=== PATIENT | female | born 1990 ===

== ENCOUNTER 2018-09-19 18:33 | Observation (INO) | payer SELFPAY ==
[2018-09-19] MEDS ORDERED: Iodixanol 320 MG/ML 100 ML BOTTLE IV ONE (19:11)
[2018-09-19 19:13] LABS: BASO % 0.4 % (0.0-2.0); EOS % 0.3 % (0.0-4.0); HEMOGLOBIN 11.7 g/dL (11.0-16.0); LYMPH # 1.2 K/uL (1.0-4.3); LYMPH % 22.1 % (20.0-40.0); MEAN CELL VOLUME 89.8 fL (81.0-99.0); MEAN CORPUSCULAR HEMOGLOBIN 28.8 pg (27.0-31.0); MEAN CORPUSCULAR HGB CONC 32.1 g/dL (33.0-37.0); MEAN PLATELET VOLUME 7.3 fL (7.2-11.7); MONO # 0.4 K/uL (0.0-0.8); MONO % 7.4 % (0.0-10.0); NEUT # 3.8 K/uL (1.8-7.0); NEUT % 69.8 % (50.0-75.0); NRBC % 0.1 % (0.0-2.0); RBC 4.08 Mil/uL (3.80-5.20); RED CELL DISTRIBUTION WIDTH 14.3 % (11.5-14.5); WHITE BLOOD COUNT 5.5 K/uL (4.8-10.8)
--- NOTE | 2018-09-19 19:21 | C.PDOC ---
History Of Present Illness CODE STROKE ACTIVATED BY Hx limited due to clinical condition, Hx per EMS, patient, and friends. 28 year old female with new onset slurred speech and left sided weakness. As per friends, at approximately 1700 patient was having an argument with someone then had sudden onset left sided weakness and difficulty speaking. Patient was able to walk done the stairs of her apartment to the EMS wheel chair. Symptoms are unchanged from onset. Patient has a Hx of lupus. Denies truama. Time Seen by Provider: 09/19/18 19:09 Chief Complaint (Nursing): Weakness/Neurological Deficit History Per: Patient, EMS, Other (Friends) History/Exam Limitations: clinical condition Onset/Duration Of Symptoms: Hrs, Sudden Onset Current Symptoms Are (Timing): Still Present Recent travel outside of the [place]: No Past Medical History Reviewed: Historical Data, Nursing Documentation, Vital Signs Vital Signs: Last Vital Signs Temp 98.4 F 09/19/18 18:40 Pulse 96 H 09/19/18 18:40 Resp 18 09/19/18 18:40 BP 150/100 H 09/19/18 18:40 Pulse Ox 98 09/19/18 18:40 Family History: States: Unknown Family Hx - Social History Hx Alcohol Use: No Hx Substance Use: No - Immunization History Hx Tetanus Toxoid Vaccination: No Hx Influenza Vaccination: No Hx Pneumococcal Vaccination: No Review Of Systems Except As Marked, All Systems Reviewed And Found Negative. Constitutional: Negative for: Fever, Chills Eyes: Negative for: Vision Change Cardiovascular: Negative for: Chest Pain, Palpitations Respiratory: Negative for: Cough, Shortness of Breath Neurological: Positive for: Weakness (Left sided), Change in Speech (Slurred) Physical Exam - Physical Exam Appears: Non-toxic Skin: Normal Color, Warm, Dry Head: Atraumatic, Normacephalic Eye(s): bilateral: Normal Inspection, PERRL, EOMI Oral Mucosa: Moist Neck: Normal, No Midline Cervical Tenderness, No Paracervical Tenderness, Supple Chest: Symmetrical, No Tenderness Cardiovascular: Rhythm Regular Respiratory: Normal Breath Sounds, No Rales, No Rhonchi, No Wheezing Gastrointestinal/Abdominal: Soft, No Tenderness Back: No CVA Tenderness, No Vertebral Tenderness, No Paraspinal Tenderness Extremity: Normal ROM (x4) Neurological/Psych: Other (See NIH) Gait: Steady ED Course And Treatment - Laboratory Results Result Diagrams: 09/19/18 19:10 09/19/18 19:10 ECG: Interpreted By Me ECG Rhythm: Sinus Rhythm ECG Interpretation: Normal Rate From EC O2 Sat by Pulse Oximetry: 98 Pulse Ox Interpretation: Normal NIHSS Stroke Scale - Date/Time Evaluation Performed Date Performed: 09/19/18 Time Performed: 19:19 When Was NIHSS Performed: Code Stroke - How Severe is the Stroke Level of Consciousness: 0=Alert LOC to Questions: 0=Both comments correct LOC to commands: 0=Obeys both correctly Best Gaze: 0=Normal Visual: 0=No visual loss Facial: 0=Normal Motor Arm - Left: 3=No effort against gravity (falls immediately) Motor Arm - Right: 3=No effort against gravity (falls immediately) Motor Leg - Left: 3=No effort against gravity (falls immediately) Motor Leg - Right: 3=No effort against gravity (falls immediately) Limb Ataxia: 0=Absent Sensory: 0=Normal Best Language: 0=No aphasia Dysarthia: 1=Mild to moderate slurring Extinction & Inattention (Neglect): 0=Normal, no object Score: 13 Progress - Re-Evaluation Re-evaluation Note: 09/19/18 19:24 D/W DR AMOS AWARE OF ER FINDINGS. PT NOT A CANDIDATE FOR TPA. WILL CONSULT, MRI BRAIN. 09/19/18 20:29 D/W DR BLOOD WILL ADMIT. REQUESTS UDS - Data Reviewed Data Reviewed: Lab, Diagnostic imaging, EKG, Old records - Critical Care Citical Care: Excluding Proc Time Critical Care Time: 90 minutes rTPA Inclusion/Exclusion - Refusal of Treatment Patient Refused Treatment: No - Inclusion Criteria for Altepase Patient is 18 years or Older: Yes The Clinical Diagnosis of Ischemic Stroke That is Causing a Potentially Disabling Neurological Deficit: Yes Time of Onset is Well Established to be Less Than 270 Minute Before Treatment Would Begin: Yes Risk/Benefit Discussed With Patient/Family Member Present: Yes - Exclusion Criteria for Altepase Uncontrolled Hypertension at Time of Treatment (Systolic BP above 185 or Diastolic BP above 110 mmHg): No Active Internal Bleeding: No Known Bleeding Diathesis Including but Not Limited to: Platelets Below 100,000 /mm,PTT Above 40 sec After Heparin Use, Current Use of Oral Anitcoagulant With INR Greater Than 1.7 or PT Greater Than 15 secs: No Evidence of an Intracranial Hemorrhage: No Evidence of Major Acute Infarct With Signs Greater Than 1/3 MCA Territory: No Suspicion of Subarachnoid Hemorrhage on Pretreatment Evaluation Even if CT Head Negative For Hemorrhage: No - Warning to TPA With Conditions Following Conditions Weighed Against Anticipated Benefit: No Medical Decision Making Medical Decision Making: Plan: * CT head * CTA * EKG * CXR * Blood work * Aspirin * Tylenol 1923: Case discussed with Dr. Amos Disposition Counseled Patient/Family Regarding: Studies Performed, Diagnosis - Disposition Disposition: HOSPITALIZED Disposition Time: 20:30 Condition: STABLE - POA Present On Arrival: None - Clinical Impression Clinical Impression: TIA (transient ischemic attack) - Scribe Statement The provider has reviewed the documentation as recorded by the Scribe Darrel Harkins All medical record entries made by the Scribe were at my direction and personally dictated by me. I have reviewed the chart and agree that the record accurately reflects my personal performance of the history, physical exam, medical decision making, and the department course for this patient. I have also personally directed, reviewed, and agree with the discharge instructions and disposition.
[2018-09-19 19:28] LABS: ALB/GLOB RATIO 1.3 (1.0-2.1); ALBUMIN 3.6 g/dL (3.5-5.0); ALT/SGPT 15 U/L (9-52); AST/SGOT 20 U/L (14-36); BLOOD UREA NITROGEN 15 mg/dL (7-17); CALCIUM 8.4 mg/dl (8.6-10.4); GFR NON-AFRICAN AMERICAN > 60; HDL CHOLESTEROL 77 mg/dL (30-70)
[2018-09-19 19:39] LABS: LDL CHOLESTEROL 58 mg/dL (0-129)
[2018-09-19 21:04] LABS: BARBITURATES, UR NEGATIVE (NEGATIVE); BENZODIAZEPINES, UR NEGATIVE (NEGATIVE); OPIATES, UR NEGATIVE (NEGATIVE); PHENCYCLIDINE, UR NEGATIVE (NEGATIVE)
--- NOTE | 2018-09-20 03:28 | CP.PCM.HP ---
<Vladislav Mariano - Last Filed: 09/20/18 07:30> History of Present Illness - History of Present Illness History of Present Illness: H&P note for Dr Womack cc: Passing out, left side weakness HPI: Patient is a 28 year old Female with pmhx of Lupus, nephrotic syndrome, Stage V kidney failure, and anemia that presents to ED after passing out after an argument with her roomate. Patient states she was having ajob interview when her male roomate came and screamed at her for using a cutting board. Patient got nervous, hot and dizzy during the argument and states she lost consciousness and hit her head. Patient does not know how long she was unsconscious and only remembers seeing EMT staff at her room after passing out. Patient decided not be taken to the hospital, but shortly developed slurred speech, weakness on left upper and lower extremity and difficulty walking. Kenyon mckenna admits to headache for about 13 days and has taken tylenol which helps for a short time. Patient admits to chest tightness and shortness of breath, but denies palpitations, nausea, vomiting, changes in vision, diarrhea, constipation, urinary symptoms, or leg swelling. PMD: [place] All: Flu shot (face breakout, flare), Pesticides (flare) Pmhx: as mentioned in HPI Shx: Kidney biopsy (1 month ago), lymph node removal in abdomen ( 1 1/2 year ago) Fmhx: none Sochx: denies alcohol, tobacco or illicit drug use. Present on Admission - Present on Admission Any Indicators Present on Admission: No Review of Systems - Review of Systems All systems: reviewed and no additional remarkable complaints except Review of Systems: as mentioned in HPI Past Patient History - Past Social History Smoking Status: Never Smoked - ENDOCRINE/METABOLIC Hx Endocrine Disorders: Yes Hx Systemic Lupus Erythematosus: Yes - PSYCHIATRIC Hx Substance Use: No Meds Allergies/Adverse Reactions: Allergies Allergy/AdvReac Type Severity Reaction Status Date / Time influenza virus vaccine ts AdvReac Severe rasd Verified 09/20/18 05:36 [id number] (36 mos up) [From Fluarix [id number] (PF)] Physical Exam - Constitutional Appears: Non-toxic, No Acute Distress - Head Exam Head Exam: ATRAUMATIC, NORMAL INSPECTION, NORMOCEPHALIC - Eye Exam Eye Exam: EOMI, Normal appearance Pupil Exam: Mydriatic, NORMAL ACCOMODATION - ENT Exam ENT Exam: Mucous Membranes Moist, Normal Exam - Neck Exam Neck exam: Positive for: Normal Inspection. Negative for: Lymphadenopathy, Tenderness - Respiratory Exam Respiratory Exam: Clear to Auscultation Bilateral, NORMAL BREATHING PATTERN. absent: Rales, Rhonchi, Wheezes, Respiratory Distress - Cardiovascular Exam Cardiovascular Exam: REGULAR RHYTHM, +S1, +S2 - GI/Abdominal Exam GI & Abdominal Exam: Normal Bowel Sounds, Soft. absent: Distended, Guarding, Rebound - Extremities Exam Extremities exam: Positive for: normal inspection, pedal pulses present. Negative for: calf tenderness, pedal edema, tenderness - Back Exam Back exam: NORMAL INSPECTION. absent: paraspinal tenderness, tenderness - Neurological Exam Neurological exam: Alert, CN II-XII Intact, Oriented x3 Additional comments: slurred speech - Expanded Neurological Exam Expanded Speech: Slurred Speech Cranial nerves: EOM's Intact: Normal, Facial [place] w/Forehead Movement: Normal, Facial [place] w/o Forehead Movement: Normal, Facial Sensation: Normal Cerebellar Function: Finger to Nose: Normal Sensory exam: Lower Extremity Light Touch: Normal, Upper Extremity Light Touch: Normal Neuro motor strength exam: Left Upper Extremity: 3, Right Upper Extremity: 5, Left Lower Extremity: 3, Right Lower Extremity: 5 - Psychiatric Exam Psychiatric exam: Normal Affect, Normal Mood - Skin Skin Exam: Dry, Intact, Normal Color, Warm Results - Vital Signs Recent Vital Signs: Last Vital Signs Temp 98.2 F 09/20/18 01:10 Pulse 79 09/20/18 02:55 Resp 18 09/20/18 02:55 BP 117/84 09/20/18 02:55 Pulse Ox 98 09/20/18 02:55 - Labs Result Diagrams: 09/19/18 19:10 09/19/18 19:10 Labs: Laboratory Results - last 24 hr 09/19/18 09/19/18 09/19/18 19:10 19:10 19:10 WBC 5.5 RBC 4.08 Hgb 11.7 Hct 36.7 MCV 89.8 MCH 28.8 MCHC 32.1 L RDW 14.3 Plt Count 320 MPV 7.3 Neut % (Auto) 69.8 Lymph % (Auto) 22.1 [place] % (Auto) 7.4 Eos % (Auto) 0.3 Baso % (Auto) 0.4 Neut # (Auto) 3.8 Lymph # (Auto) 1.2 [place] # (Auto) 0.4 Eos # (Auto) 0.0 Baso # (Auto) 0.0 PT 11.0 INR 1.0 APTT 28 Sodium 136 Potassium 3.3 L Chloride 99 Carbon Dioxide 28 Anion Gap 12 BUN 15 Creatinine 0.5 L Est GFR ( Amer) > 60 Est GFR (Non-Af Amer) > 60 Random Glucose 108 H Hemoglobin A1c Calcium 8.4 L Total Bilirubin 0.2 AST 20 ALT 15 Alkaline Phosphatase 36 L Troponin I < 0.0120 Total Protein 6.4 Albumin 3.6 Globulin 2.8 Albumin/Globulin Ratio 1.3 Triglycerides 132 Cholesterol 149 LDL Cholesterol Direct 58 HDL Cholesterol 77 H Beta HCG, Quant Urine Opiates Screen Urine Methadone Screen Ur Barbiturates Screen Ur Phencyclidine Scrn Ur Amphetamines Screen U Benzodiazepines Scrn U Oth Cocaine Metabols U Cannabinoids Screen Blood Type Antibody Screen 09/19/18 09/19/18 09/19/18 19:10 19:10 19:31 WBC RBC Hgb Hct MCV MCH MCHC RDW Plt Count MPV Neut % (Auto) Lymph % (Auto) [place] % (Auto) Eos % (Auto) Baso % (Auto) Neut # (Auto) Lymph # (Auto) [place] # (Auto) Eos # (Auto) Baso # (Auto) PT INR APTT Sodium Potassium Chloride Carbon Dioxide Anion Gap BUN Creatinine Est GFR ( Amer) Est GFR (Non-Af Amer) Random Glucose Hemoglobin A1c 5.4 Calcium Total Bilirubin AST ALT Alkaline Phosphatase Troponin I Total Protein Albumin Globulin Albumin/Globulin Ratio Triglycerides Cholesterol LDL Cholesterol Direct HDL Cholesterol Beta HCG, Quant < 2.39 Urine Opiates Screen Urine Methadone Screen Ur Barbiturates Screen Ur Phencyclidine Scrn Ur Amphetamines Screen U Benzodiazepines Scrn U Oth Cocaine Metabols U Cannabinoids Screen Blood Type A POSITIVE Antibody Screen Negative 09/19/18 09/20/18 20:36 00:24 WBC RBC Hgb Hct MCV MCH MCHC RDW Plt Count MPV Neut % (Auto) Lymph % (Auto) [place] % (Auto) Eos % (Auto) Baso % (Auto) Neut # (Auto) Lymph # (Auto) [place] # (Auto) Eos # (Auto) Baso # (Auto) PT INR APTT Sodium Potassium Chloride Carbon Dioxide Anion Gap BUN Creatinine Est GFR ( Amer) Est GFR (Non-Af Amer) Random Glucose Hemoglobin A1c Calcium Total Bilirubin AST ALT Alkaline Phosphatase Troponin I < 0.0120 Total Protein Albumin Globulin Albumin/Globulin Ratio Triglycerides Cholesterol LDL Cholesterol Direct HDL Cholesterol Beta HCG, Quant Urine Opiates Screen Negative Urine Methadone Screen Negative Ur Barbiturates Screen Negative Ur Phencyclidine Scrn Negative Ur Amphetamines Screen Negative U Benzodiazepines Scrn Negative U Oth Cocaine Metabols Negative U Cannabinoids Screen Negative Blood Type Antibody Screen Assessment & Plan - Assessment and Plan (Free Text) Plan: Left side weakness, slurred speech R/O TIA vs CVA - Code stroke at ER - CT head: Sinusitis, no evidence of acute intracranial pathology - CTA: unremarkable - Troponin and EKG x1 in ED: negative - MRI brain - in am - f/u - Neuro consult - Dr Amos - help is appreciated - troponin x 2 - f/u - EKG x 2 - f/u - 2D echo - Carotid doppler - Aspirin 81mg PO QD - Crestor 5mg PO HS - Tylenol [place] x 1 dose for headaches - Toradol 15mg IVP x 1 dose - f/u am labs Hypokalemia - 3.3 - F/u am labs, correct if needed hx of Lupus -obtain home med list from patient's pharmacy Prophylaxis -DVT - SCDs - Diet: Renal diet - Fall precautions - PT/OT - NS @ 75mls Plan discussed with Dr Shanta Mariano, PGY-1 - Date & Time Date: 09/19/18 Time: 20:00 <Christian Womack - Last Filed: 09/20/18 19:02> Results - Vital Signs Recent Vital Signs: Last Vital Signs Temp 97.3 F L 09/20/18 15:00 Pulse 78 09/20/18 16:00 Resp 20 09/20/18 15:00 BP 111/72 09/20/18 15:00 Pulse Ox 92 L 09/20/18 16:00 - Labs Result Diagrams: 09/19/18 19:10 09/19/18 19:10 Labs: Laboratory Results - last 24 hr 09/19/18 09/19/18 09/19/18 18:42 19:10 19:10 WBC 5.5 RBC 4.08 Hgb 11.7 Hct 36.7 MCV 89.8 MCH 28.8 MCHC 32.1 L RDW 14.3 Plt Count 320 MPV 7.3 Neut % (Auto) 69.8 Lymph % (Auto) 22.1 [place] % (Auto) 7.4 Eos % (Auto) 0.3 Baso % (Auto) 0.4 Neut # (Auto) 3.8 Lymph # (Auto) 1.2 [place] # (Auto) 0.4 Eos # (Auto) 0.0 Baso # (Auto) 0.0 PT 11.0 INR 1.0 APTT 28 Sodium Potassium Chloride Carbon Dioxide Anion Gap BUN Creatinine Est GFR ( Amer) Est GFR (Non-Af Amer) POC Glucose (mg/dL) 117 H Random Glucose Hemoglobin A1c Calcium Total Bilirubin AST ALT Alkaline Phosphatase Troponin I Total Protein Albumin Globulin Albumin/Globulin Ratio Triglycerides Cholesterol LDL Cholesterol Direct HDL Cholesterol Beta HCG, Quant Urine Opiates Screen Urine Methadone Screen Ur Barbiturates Screen Ur Phencyclidine Scrn Ur Amphetamines Screen U Benzodiazepines Scrn U Oth Cocaine Metabols U Cannabinoids Screen Blood Type Antibody Screen 09/19/18 09/19/18 09/19/18 19:10 19:10 19:10 WBC RBC Hgb Hct MCV MCH MCHC RDW Plt Count MPV Neut % (Auto) Lymph % (Auto) [place] % (Auto) Eos % (Auto) Baso % (Auto) Neut # (Auto) Lymph # (Auto) [place] # (Auto) Eos # (Auto) Baso # (Auto) PT INR APTT Sodium 136 Potassium 3.3 L Chloride 99 Carbon Dioxide 28 Anion Gap 12 BUN 15 Creatinine 0.5 L Est GFR ( Amer) > 60 Est GFR (Non-Af Amer) > 60 POC Glucose (mg/dL) Random Glucose 108 H Hemoglobin A1c 5.4 Calcium 8.4 L Total Bilirubin 0.2 AST 20 ALT 15 Alkaline Phosphatase 36 L Troponin I < 0.0120 Total Protein 6.4 Albumin 3.6 Globulin 2.8 Albumin/Globulin Ratio 1.3 Triglycerides 132 Cholesterol 149 LDL Cholesterol Direct 58 HDL Cholesterol 77 H Beta HCG, Quant Urine Opiates Screen Urine Methadone Screen Ur Barbiturates Screen Ur Phencyclidine Scrn Ur Amphetamines Screen U Benzodiazepines Scrn U Oth Cocaine Metabols U Cannabinoids Screen Blood Type A POSITIVE Antibody Screen Negative 09/19/18 09/19/1818 19:31 20:36 00:24 WBC RBC Hgb Hct MCV MCH MCHC RDW Plt Count MPV Neut % (Auto) Lymph % (Auto) [place] % (Auto) Eos % (Auto) Baso % (Auto) Neut # (Auto) Lymph # (Auto) [place] # (Auto) Eos # (Auto) Baso # (Auto) PT INR APTT Sodium Potassium Chloride Carbon Dioxide Anion Gap BUN Creatinine Est GFR ( Amer) Est GFR (Non-Af Amer) POC Glucose (mg/dL) Random Glucose Hemoglobin A1c Calcium Total Bilirubin AST ALT Alkaline Phosphatase Troponin I < 0.0120 Total Protein Albumin Globulin Albumin/Globulin Ratio Triglycerides Cholesterol LDL Cholesterol Direct HDL Cholesterol Beta HCG, Quant < 2.39 Urine Opiates Screen Negative Urine Methadone Screen Negative Ur Barbiturates Screen Negative Ur Phencyclidine Scrn Negative Ur Amphetamines Screen Negative U Benzodiazepines Scrn Negative U Oth Cocaine Metabols Negative U Cannabinoids Screen Negative Blood Type Antibody Screen 09/20/18 09/20/18 09/20/18 06:35 06:41 17:07 WBC RBC Hgb Hct MCV MCH MCHC RDW Plt Count MPV Neut % (Auto) Lymph % (Auto) [place] % (Auto) Eos % (Auto) Baso % (Auto) Neut # (Auto) Lymph # (Auto) [place] # (Auto) Eos # (Auto) Baso # (Auto) PT INR APTT Sodium Potassium Chloride Carbon Dioxide Anion Gap BUN Creatinine Est GFR ( Amer) Est GFR (Non-Af Amer) POC Glucose (mg/dL) 72 81 Random Glucose Hemoglobin A1c Calcium Total Bilirubin AST ALT Alkaline Phosphatase Troponin I < 0.0120 Total Protein Albumin Globulin Albumin/Globulin Ratio Triglycerides Cholesterol LDL Cholesterol Direct HDL Cholesterol Beta HCG, Quant Urine Opiates Screen Urine Methadone Screen Ur Barbiturates Screen Ur Phencyclidine Scrn Ur Amphetamines Screen U Benzodiazepines Scrn U Oth Cocaine Metabols U Cannabinoids Screen Blood Type Antibody Screen Assessment & Plan - Date & Time Date: 09/20/18 (I have seen and examined the patient. I agree with the findings and plan of care as documented by Dr. Mariano. Patient with CVA/TIA. Code stroke called in ED. Neuro consulted. CT head negative. Check MRI brain. ROMIx3 with ekg. 2D Echo. Carotid dopplers. Hypokalemia. Follow bloodwork and replete as necessary. History of Lupus. Contact patient's pharmacy and obtain up to date med list. Monitor for acute changes.) Time: 19:00 Attending/Attestation - Attestation I have personally seen and examined this patient.: Yes I have fully participated in the care of the patient.: Yes I have reviewed all pertinent clinical information: Yes
[2018-09-20 03:40] VITALS: RESP 20
[2018-09-20] MEDS ORDERED: Sodium Chloride 0.9% 1,000 ML IV SCH (05:15)
--- NOTE | 2018-09-20 08:21 | CT ---
Date of service: 09/19/2018 PROCEDURE: CT HEAD WITHOUT CONTRAST. HISTORY: Code Stroke COMPARISON: None available. TECHNIQUE: Axial computed tomography images were obtained through the head/brain without intravenous contrast. Radiation dose: Total exam DLP = 1105.42 mGy-cm. This CT exam was performed using one or more of the following dose reduction techniques: Automated exposure control, adjustment of the mA and/or kV according to patient size, and/or use of iterative reconstruction technique. FINDINGS: HEMORRHAGE: No intracranial hemorrhage. BRAIN: No mass effect or edema. No atrophy or chronic microvascular ischemic changes. Punctate calcification in the right basal ganglia. VENTRICLES: Unremarkable. No hydrocephalus. CALVARIUM: Unremarkable. PARANASAL SINUSES: Mild mucosal thickening of the frontal sinus. MASTOID AIR CELLS: Unremarkable as visualized. No inflammatory changes. OTHER FINDINGS: None. IMPRESSION: No acute intracranial abnormality. If there is persistent concern for acute ischemic change, consider correlation with MRI. A preliminary report was generated at 7:05 p.m. on 09/19/[address] Juan Manuel Ceballos from [facility].
[2018-09-20] MEDS ORDERED: Potassium Chloride 20 mEq/15 ml LIQ UD PO STA (10:03)
--- NOTE | 2018-09-20 10:28 | RAD ---
HISTORY: Code Stroke COMPARISON: No prior. TECHNIQUE: Chest, one view. FINDINGS: LUNGS: No focal consolidation. Please note that chest x-ray has limited sensitivity for the detection of pulmonary masses. PLEURA: No significant pleural effusion identified. No definite pneumothorax . CARDIOVASCULAR: Heart size appears within normal limits. Right mediastinal prominence possibly related to tortuous vasculature however alternatives including adenopathy are not excluded. No significant atherosclerotic calcification present. OSSEOUS STRUCTURES: No acute osseous abnormality identified. VISUALIZED UPPER ABDOMEN: Unremarkable. OTHER FINDINGS: None. IMPRESSION: No focal consolidation identified. Right mediastinal prominence possibly related to tortuous vasculature however alternatives including adenopathy are not excluded. Recommend repeat chest PA and lateral, otherwise CT of the chest with IV contrast may be considered for further evaluation if indicated.
--- NOTE | 2018-09-20 12:25 | CT ---
Date of service: 09/19/2018 PROCEDURE: CT Angiography of the neck and brain with contrast HISTORY: CODE STROKE COMPARISON: Comparison made concurrent noncontrast CT scan brain 09/19/2018. TECHNIQUE: Contiguous axial images of the neck and brain were obtained from the level of the vertex of the skull to the superior mediastinum in the arteriographic phase of enhancement. Coronal and sagittal reformats or also generated. IV contrast dose: Radiation dose: Total exam DLP = 492.86 mGy-cm. This CT exam was performed using one or more of the following dose reduction techniques: Automated exposure control, adjustment of the mA and/or kV according to patient size, and/or use of iterative reconstruction technique. FINDINGS: Aortic arch widely patent as are the origins of the great vessels. No significant atherosclerotic calcification or mural plaque identified. RIGHT CAROTID ARTERIES: Common Carotid Artery: Normal. Carotid Bifurcation: Normal. Internal Carotid Artery:Diminutive in caliber felt to represent an anatomic variation l. External Carotid Artery (proximal branches): Normal.. LEFT CAROTID ARTERIES: Common Carotid Artery: Normal. Carotid Bifurcation: Normal. Internal Carotid Artery:Diminutive in caliber felt to represent an anatomic variation. External Carotid Artery (proximal branches): Normal. VERTEBRAL ARTERIES: Vertebral arteries are diminutive in caliber as is the basilar artery.. OTHER FINDINGS: The major branches of the [id number] are also diminutive in caliber on. There is mild asymmetry of the A2 segments right-sided which is smaller in caliber than the left.. The more distal branches of the anterior middle and posterior cerebral arteries appear relatively symmetric. No evidence of large aneurysm nor vascular malformation. IMPRESSION: No evidence of occlusion significant stenosis or dissection. No evidence of large intra cerebral aneurysm or vascular malformation.
--- NOTE | 2018-09-20 12:45 | MRI ---
Date of service: 09/20/2018 PROCEDURE: MRI BRAIN WITHOUT CONTRAST HISTORY: left side weakness COMPARISON: Comparison made with prior CT scan and CTA brain and neck dated 09/19/2018. TECHNIQUE: Multiplanar, multisequence MR images of the brain were obtained without intravenous contrast enhancement. FINDINGS: HEMORRHAGE: No acute parenchymal, subarachnoid or extra-axial hemorrhage. No evidence of venous in deposition identified on gradient echo on gradient echo weighted sequence. DWI: No evidence of an acute or early subacute infarction filling diffusion imaging.. BRAIN PARENCHYMA: No mass effect or edema. No atrophy or chronic microvascular ischemic changes. VENTRICLES: No obstructive hydrocephalus. CRANIUM: Unremarkable. ORBITS: Orbits and contents grossly unremarkable. PARANASAL SINUSES/MASTOIDS: Mild mucosal thickening and/or small fluid level right maxillary antrum. Minimal mucosal thickening left maxillary antrum. There is also mild mucosal thickening in the left aspect of the frontal sinus VASCULAR SYSTEM: Visualized major vascular flow voids at skull base patent.. OTHER FINDINGS: None. IMPRESSION: No evidence of acute intracranial hemorrhage or infarction. Mild mucoperiosteal inflammatory changes seen within the aforementioned paranasal sinuses
--- NOTE | 2018-09-20 13:52 | CARD ---
APPROVED REPORT Date of service: 09/20/2018 EXAM: Two-dimensional and M-mode echocardiogram with Doppler and color Doppler. Other Information Quality : GoodRhythm : INDICATION R/O CARDIAC PATHOLOGY,CODE STROKE 2D DIMENSIONS IVSd1.0 (0.7-1.1cm)Aortic Root (2D)2.5 (2.0-3.7cm) LVDd4.7 (3.9-5.9cm)PWd0.9 (0.7-1.1cm) LA Jmejfk15 (18-58mL)LVDs3.3 (2.5-4.0cm) FS (%) 29.7 %LVEF (%)56.7 (>50%) LVEF (Wray's)61.83 %IVC0.00 cm M-Mode DIMENSIONS RVDd1.72 (2.1-3.2cm)Left Atrium (MM)2.97 (2.5-4.0cm) IVSd1.15 (0.7-1.1cm)Aortic Root2.77 (2.2-3.7cm) LVDd4.14 (4.0-5.6cm)Aortic Cusp Exc.2.05 (1.5-2.0cm) PWd1.15 (0.7-1.1cm)FS (%) 34 % LVDs2.73 (2.0-3.8cm)LVEF (%)63 (>50%) Mitral Valve MV E Zqkbyapg15.8cm/sMV A Shylekaq35.1cm/sE/A ratio1.4 TDI Lateral E' Peak V13.77cm/sMedial E' Peak V5.84cm/sE/Lateral E'4.9 E/Medial E'11.6 Tricuspid Valve TR Peak Zkpiahiq465nd/sTR Peak Gr.35xpPtIACR96voFl LEFT VENTRICLE The left ventricle is normal size. There is normal left ventricular wall thickness. Left ventricle systolic function is The Ejection Fraction is 60-65%. There is normal LV segmental wall motion. The left ventricular diastolic function is normal. No left ventricle thrombus noted on this study. There is no ventricular septal defect visualized. RIGHT VENTRICLE The right ventricle is normal size. The right ventricular systolic function is normal. ATRIA The left atrium size is normal. The right atrium size is normal. The interatrial septum is intact with no evidence for an atrial septal defect. AORTIC VALVE The aortic valve is trileaflet. No aortic regurgitation is present. There is no aortic valvular stenosis. There is no aortic valvular vegetation. MITRAL VALVE Mitral annular calcification is mild. There is no evidence of mitral valve prolapse. There is no mitral valve stenosis. There is no mitral valve regurgitation noted. TRICUSPID VALVE The tricuspid valve is normal in structure. There is mild tricuspid regurgitation. Right ventricular systolic pressure is estimated at less than 30 mmHg. There is no pulmonary hypertension. There is no tricuspid valve prolapse or vegetation. There is no tricuspid valve stenosis. PULMONIC VALVE The pulmonary valve is normal in structure. There is trace to mild pulmonic valvular regurgitation. There is no pulmonic valvular stenosis. GREAT VESSELS The aortic root is normal in size. The IVC is normal in size and collapses >50% with inspiration. PERICARDIAL EFFUSION There is no pericardial effusion. There is no pleural effusion. <Conclusion> The left ventricle is normal size. Left ventricle systolic function is The Ejection Fraction is 60-65%. The left ventricular diastolic function is normal. The right ventricle is normal size. The right ventricular systolic function is normal. The left atrium size is normal. The right atrium size is normal. There is mild tricuspid regurgitation. There is trace to mild pulmonic valvular regurgitation.
[2018-09-20 16:15] VITALS: BP 111/72; TEMP 97.3; O2SAT 92
[2018-09-20 17:22] VITALS: PULSE 78
--- NOTE | 2018-09-20 21:58 | CP.PCM.DIS ---
Provider - Provider Date of Admission: 09/19/18 20:30 Attending physician: Chirag Olivarez MD Consults: 09/19/18 18:40 Stroke Team Consult Stat Comment: Consulting Provider: Neurohospitalist Consulting Physician: NEUROHOMATILDA Neurohospitalist for Consult: Dutch Marina Neurohospitalist for Consult: Mark Amos Reason for Consult: code stroke 09/20/18 00:12 Neurology Consult Routine Comment: Consulting Provider: Mark Amos Consulting Physician: Mark Amos Reason for Consult: Left side weakness, slurred speech, r/o TIA vs CVA Time Spent in preparation of Discharge (in minutes): 45 Diagnosis - Discharge Diagnosis (1) Stress and adjustment reaction Status: Resolved Hospital Course - Lab Results Lab Results: Most Recent Lab Values WBC 5.5 K/uL (4.8-10.8) 09/19/18 19:10 RBC 4.08 Mil/uL (3.80-5.20) 09/19/18 19:10 Hgb 11.7 g/dL (11.0-16.0) 09/19/18 19:10 Hct 36.7 % (34.0-47.0) 09/19/18 19:10 MCV 89.8 fL (81.0-99.0) 09/19/18 19:10 MCH 28.8 pg (27.0-31.0) 09/19/18 19:10 MCHC 32.1 g/dL (33.0-37.0) L 09/19/18 19:10 RDW 14.3 % (11.5-14.5) 09/19/18 19:10 Plt Count 320 K/uL (130-400) 09/19/18 19:10 MPV 7.3 fL (7.2-11.7) 09/19/18 19:10 Neut % (Auto) 69.8 % (50.0-75.0) 09/19/18 19:10 Lymph % (Auto) 22.1 % (20.0-40.0) 09/19/18 19:10 Long % (Auto) 7.4 % (0.0-10.0) 09/19/18 19:10 Eos % (Auto) 0.3 % (0.0-4.0) 09/19/18 19:10 Baso % (Auto) 0.4 % (0.0-2.0) 09/19/18 19:10 Neut # (Auto) 3.8 K/uL (1.8-7.0) 09/19/18 19:10 Lymph # (Auto) 1.2 K/uL (1.0-4.3) 09/19/18 19:10 Long # (Auto) 0.4 K/uL (0.0-0.8) 09/19/18 19:10 Eos # (Auto) 0.0 K/uL (0.0-0.7) 09/19/18 19:10 Baso # (Auto) 0.0 K/uL (0.0-0.2) 09/19/18 19:10 PT 11.0 SECONDS (9.7-12.2) 09/19/18 19:10 INR 1.0 09/19/18 19:10 APTT 28 SECONDS (21-34) 09/19/18 19:10 Sodium 136 mmol/L (132-148) 09/19/18 19:10 Potassium 3.3 mmol/L (3.6-5.2) L 09/19/18 19:10 Chloride 99 mmol/L (98-107) 09/19/18 19:10 Carbon Dioxide 28 mmol/L (22-30) 09/19/18 19:10 Anion Gap 12 (10-20) 09/19/18 19:10 BUN 15 mg/dL (7-17) 09/19/18 19:10 Creatinine 0.5 mg/dL (0.7-1.2) L 09/19/18 19:10 Est GFR ( Amer) > 60 09/19/18 19:10 Est GFR (Non-Af Amer) > 60 09/19/18 19:10 POC Glucose (mg/dL) 81 mg/dL (65-110) 09/20/18 17:07 Random Glucose 108 mg/dL (65-105) H 09/19/18 19:10 Hemoglobin A1c 5.4 % (4.2-6.5) 09/19/18 19:10 Calcium 8.4 mg/dl (8.6-10.4) L 09/19/18 19:10 Total Bilirubin 0.2 mg/dL (0.2-1.3) 09/19/18 19:10 AST 20 U/L (14-36) 09/19/18 19:10 ALT 15 U/L (9-52) 09/19/18 19:10 Alkaline Phosphatase 36 U/L (38-126) L 09/19/18 19:10 Troponin I < 0.0120 ng/mL (0.00-0.120) 09/20/18 06:41 Total Protein 6.4 g/dL (6.3-8.3) 09/19/18 19:10 Albumin 3.6 g/dL (3.5-5.0) 09/19/18 19:10 Globulin 2.8 gm/dL (2.2-3.9) 09/19/18 19:10 Albumin/Globulin Ratio 1.3 (1.0-2.1) 09/19/18 19:10 Triglycerides 132 mg/dL (0-149) 09/19/18 19:10 Cholesterol 149 mg/dL (0-199) 09/19/18 19:10 LDL Cholesterol Direct 58 mg/dL (0-129) 09/19/18 19:10 HDL Cholesterol 77 mg/dL (30-70) H 09/19/18 19:10 Beta HCG, Quant < 2.39 mIU/ML 09/19/18 19:31 Urine Opiates Screen Negative (NEGATIVE) 09/19/18 20:36 Urine Methadone Screen Negative (NEGATIVE) 09/19/18 20:36 Ur Barbiturates Screen Negative (NEGATIVE) 09/19/18 20:36 Ur Phencyclidine Scrn Negative (NEGATIVE) 09/19/18 20:36 Ur Amphetamines Screen Negative (NEGATIVE) 09/19/18 20:36 U Benzodiazepines Scrn Negative (NEGATIVE) 09/19/18 20:36 U Oth Cocaine Metabols Negative (NEGATIVE) 09/19/18 20:36 U Cannabinoids Screen Negative (NEGATIVE) 09/19/18 20:36 Blood Type A POSITIVE 09/19/18 19:10 Antibody Screen Negative 09/19/18 19:10 - Hospital Course Hospital Course: cc: Passing out, left side weakness HPI: Patient is a 28 year old Female with pmhx of Lupus, nephrotic syndrome, Stage V kidney failure, and anemia that presents to ED after passing out after an argument with her roomate. Patient states she was having ajob interview when her male roomate came and screamed at her for using a cutting board. Patient got nervous, hot and dizzy during the argument and states she lost consciousness and hit her head. Patient does not know how long she was unsconscious and only remembers seeing EMT staff at her room after passing out. Patient decided not be taken to the hospital, but shortly developed slurred speech, weakness on left upper and lower extremity and difficulty walking. Patient admits to headache for about 13 days and has taken tylenol which helps for a short time. Patient admits to chest tightness and shortness of breath, but denies palpitations, nausea, vomiting, changes in vision, diarrhea, constipation, urinary symptoms, or leg swelling. PMD: Vince Vizcarra All: Flu shot (face breakout, flare), Pesticides (flare) Pmhx: as mentioned in HPI Shx: Kidney biopsy (1 month ago), lymph node removal in abdomen ( 1 1/2 year ago) Fmhx: none Sochx: denies alcohol, tobacco or illicit drug use. Home Rx: Celcept Plaquinil Prednisone Pt is to be Discharged Home Pt is to Follow up with Dr Perico Amos within one week of discharge please call office [phone] to make an appointment Pt is to Follow up with her fiberglass technician Dr Vince Vazquez within two weeks of discharge If symptoms recur, please seek medical attention immediately. Take care and be well Hospital Course: Pt was admitted to rule out a CVA vs TIA. In ED pt presented with normal vital signs, bilateral upper and lower limb weakness. Upon admission to floors pt had unilateral left sided upper and lower ext weakness 3/5 as well as mild speach slurring. Symptoms improved overnight, pt no longer with any weakness, Pt denied any residual deficits, pt felt completely stable to go home. Neuro was consulted (Dr Amos) who recommeded CT, CTA, MRI , Carotid Duplex and Echo. Pt was given loading dose of ASA in ED, heparin and crestor. Imaging and Dx CT Head w/o contrast: no intracranial pathology CTA Head and Neck: neg Carotid Duplex: prelim neg, will notify PMD and pt w/ results if pathologic Echo: EF 65%, neg for pathology MRI Brain: neg PLAN Pt is to be Discharged Home Pt is to Follow up with Dr Perico Amos within one week of discharge please call office [phone] to make an appointment Pt is to Follow up with her fiberglass technician Dr Vince Vazquez within two weeks of discharge If symptoms recur, please seek medical attention immediately. Take care and be well THIS IS A SUMMARY, PLEASE REFER TO [email or web address] FOR COMPLETE RECORDS Discharge Exam - Head Exam Head Exam: ATRAUMATIC, NORMAL INSPECTION, NORMOCEPHALIC - Additional Findings Additional findings: - Constitutional Appears: Non-toxic, No Acute Distress - Head Exam Head Exam: ATRAUMATIC, NORMAL INSPECTION, NORMOCEPHALIC - Eye Exam Eye Exam: EOMI, Normal appearance Pupil Exam: Mydriatic, NORMAL ACCOMODATION - ENT Exam ENT Exam: Mucous Membranes Moist, Normal Exam - Neck Exam Neck exam: Positive for: Normal Inspection. Negative for: Lymphadenopathy, Tenderness - Respiratory Exam Respiratory Exam: Clear to Auscultation Bilateral, NORMAL BREATHING PATTERN. absent: Rales, Rhonchi, Wheezes, Respiratory Distress - Cardiovascular Exam Cardiovascular Exam: REGULAR RHYTHM, +S1, +S2 - GI/Abdominal Exam GI & Abdominal Exam: Normal Bowel Sounds, Soft. absent: Distended, Guarding, Rebound - Extremities Exam Extremities exam: Positive for: normal inspection, pedal pulses present. Negative for: calf tenderness, pedal edema, tenderness - Back Exam Back exam: NORMAL INSPECTION. absent: paraspinal tenderness, tenderness - Neurological Exam Neurological exam: Alert, CN II-XII Intact, Oriented x3 - Expanded Neurological Exam Expanded Speech: Normal Cranial nerves: EOM's Intact, Sensation intact bilaterally, No palsy seen, Peripheral Vision intact, Cerebellar Function: Finger to Nose: Normal Sensory exam: Lower Extremity Light Touch: Normal, Upper Extremity Light Touch: Normal Neuro motor strength exam: Left Upper Extremity: 5, Right Upper Extremity: 5, Left Lower Extremity: 5, Right Lower Extremity: 5 neg hoffmans, no clonus noted, neg pronator drift, pincers intact bilaterally, neg babinski, Reflexes 2+ bilaterally in achilles, patella, bipes and brachradialis - Psychiatric Exam Psychiatric exam: Normal Affect, Normal Mood - Skin Skin Exam: Dry, Intact, Normal Color, Warm, discoid lesions noted on face Discharge Plan - Follow Up Plan Condition: STABLE Disposition: HOME/ ROUTINE Instructions: Full Liquid Diet Additional Instructions: Pt is to be Discharged Home Pt is to Follow up with Dr Perico Amos within one week of discharge please call office [phone] to make an appointment Pt is to Follow up with her fiberglass technician Dr Vince Vazquez within two weeks of discharge If symptoms recur, please seek medical attention immediately. Take care and be well Pt es para ser dado de candie a casa Pt debe hacer un seguimiento con el Dr. Perico Amos dentro de [place] semana despus del candie. Llame a la oficina [phone] para hacer [place] corina. Pt debe hacer un seguimiento con arreaga reumatlogo, el Dr. Vince Vazquez, dentro de las dos semanas posteriores al candie. Si los sntomas reaparecen, busque atencin mdica de inmediato. Cuidate y estar kristine Referrals: Dutch Marina MD [Staff Provider] - Mark Amos MD [Staff Provider] - Vince Vazquez MD [Medical Doctor] -
--- NOTE | 2018-09-21 12:10 | VASCLAB ---
Date of service: 09/20/2018 PROCEDURE: Carotid Duplex Exam. HISTORY: r/o carotid stenosis, left side weakness COMPARISON: None available. TECHNIQUE: Grayscale and duplex Doppler evaluation of the cervical carotid and vertebral arteries were performed. The common carotid, carotid bifurcations and cervical Internal Carotid Artery (ICA) and proximal External Carotid Artery (ECA) were evaluated. The vertebral arteries were evaluated for gross patency and flow direction. Report prepared by MIS Rinaldi FINDINGS: RIGHT CAROTID ARTERIES: 1. Common Carotid Artery: No significant focal plaque formation of the right common carotid artery. Maximum Peak Systolic velocity: 87 cm/sec: End-diastolic velocity 29 cm/sec. 2. Carotid Bifurcation: plaque formation. Maximum Peak Systolic velocity: 49 cm/sec: End-diastolic velocity 29 cm/sec. 3. Internal Carotid Artery: Plaque description: 3.1. Proximal Segment: Peak systolic velocity 76 cm/sec: End-diastolic velocity 40 cm/sec - % stenosis 16-49% 3.2. Middle Segment: Peak systolic velocity 100 cm/sec: End-diastolic velocity 46 cm/sec - % stenosis 16-49% 3.3. Distal Segment: Peak systolic velocity 67 cm/sec: End-diastolic velocity 21 cm/sec - % stenosis 0-15% 4. External Carotid Artery: No significant focal plaque formation. Peak systolic velocity 71 cm/sec 5. ICA/CCA Ratio: 1.2 LEFT CAROTID ARTERIES: 1. Common Carotid Artery: No significant focal plaque formation of the left common carotid artery. Maximum Peak Systolic velocity: 91 cm/sec: End-diastolic velocity 36 cm/sec. 2. Carotid Bifurcation: plaque formation. Maximum Peak Systolic velocity: 56 cm/sec: End-diastolic velocity 25 cm/sec. 3. Internal Carotid Artery: Plaque description: 3.1. Proximal Segment: Peak systolic velocity 79 cm/sec: End-diastolic velocity 40 cm/sec - % stenosis 16-49% 3.2. Middle Segment: Peak systolic velocity 97 cm/sec: End-diastolic velocity 54 cm/sec - % stenosis 16-49% 3.3. Distal Segment: Peak systolic velocity cm/sec: End-diastolic velocity cm/sec - % stenosis 4. External Carotid Artery: No significant focal plaque formation. Peak systolic velocity 67 cm/sec 5. ICA/CCA Ratio: 1.1 VERTEBRAL ARTERIES: 1. Right Vertebral Artery: The right vertebral artery flow direction is antegrade. 2. Left Vertebral Artery: The left vertebral artery flow direction is antegrade. OTHER FINDINGS: 1. Right Brachial Blood pressure: mmHg. 2. Left Brachial Blood pressure: mmHg. 3. No atherosclerotic calcification present IMPRESSION: RIGHT: 16-49% stenosis of the right proximal ICA with minimal hemodynamic significance. LEFT: 16-49% stenosis of the left proximal ICA with minimal hemodynamic significance.
== END 2018-09-20 18:31 | disposition home or self-care (01) ==
LOC: C.ER 18:33 → C.9E 20:30 → C.6T 09-20 02:34
PROVIDERS: ADMIT Family Medicine; ATTEND Family Medicine
DX: F43.29 Adjustment disorder with other symptoms (principal); I65.23 Occlusion and stenosis of bilateral carotid arteries; M32.9 Systemic lupus erythematosus, unspecified
CPT/HCPCS: 36415; 70450; 70496; 70498; 70551; 71045; 80053; 80061; 80324; 80345; 80346; 80349; 80353; 80358; 80361; 82948; 83036; 83992; 84484; 84702; 85025; 85610; 85730; 86850; 86900; 92610; 93005; 93306; 93880; 96372; 96374; 97116; 97162; 97165; 97530; 99285; G0378; G8978; G8979; G8987; G8988; G8989; G8996; G8997; G8998; J1644; J1885; J7030; Q9967